=== PATIENT | male | born 1985 | race Caucasian/White ===

== ENCOUNTER 2017-01-02 06:49 | Emergency (ER) | payer OTHER ==
[~2017-01-02] VITALS: Ht 185.4 cm; Wt 93.0 kg
--- NOTE | 2017-01-02 07:30 | NUR ---
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 Hx kidney stones. Pt denies CP, SOB, dizziness, n/v, no other complaints, minor to moderate distress noted.
[2017-01-02 07:43] LABS: BASOPHILS % (AUTO) 0.3 % (0.0-2.0); EOSINOPHILS # (AUTO) 0.1 /CMM (0.0-0.7); EOSINOPHILS % (AUTO) 1.7 % (0.0-6.0); HEMATOCRIT 42 % (39-51); HEMOGLOBIN 14.3 g/dL (13.5-17.5); LYMPHOCYTES # (AUTO) 2.1 /CMM (0.8-4.8); LYMPHOCYTES % (AUTO) 29.8 % (20.0-44.0); MEAN CORPUSCULAR HEMOGLOBIN 30 PG (26.0-33.0); MEAN CORPUSCULAR HGB CONC 34 g/dl (31.0-36.0); MEAN CORPUSCULAR VOLUME 88 fL (80-96); MONOCYTES # (AUTO) 0.5 /CMM (0.1-1.30); NEUTROPHILS # (AUTO) 4.2 /CMM (1.8-8.9); NEUTROPHILS % (AUTO) 61.2 % (43.0-81.0); PLATELET COUNT (AUTO) 164 /CMM (150-450); RDW COEFFICIENT OF VARIATION 12.8 (11.5-15.0); RED BLOOD CELL COUNT(AUTO) 4.79 MIL/uL (4.5-6.0); WHITE BLOOD COUNT (AUTO) 6.9 K/uL (4.3-11.0)
[2017-01-02] MEDS ORDERED: ONDANSETRON HCL/PF 4 MG/2 ML VIAL ONE (07:43)
[2017-01-02] MEDS ORDERED: KETOROLAC TROMETHAMINE 15 MG/ML VIAL ONE ×2 (07:43→09:24)
[2017-01-02] MEDS ORDERED: TAMSULOSIN 0.4 MG CAP.SR.24H ONE (07:43)
[2017-01-02 07:53] LABS: CREATININE 1.3 mg/dL (0.6-1.3); POTASSIUM 3.4 mmol/L (3.5-5.1)
[2017-01-02] MEDS ORDERED: ONDANSETRON HCL/PF 4 MG/2 ML VIAL IV ONE (08:00)
[2017-01-02] MEDS ORDERED: TAMSULOSIN 0.4 MG CAP.SR.24H PO ONE (08:00)
[2017-01-02] MEDS ORDERED: KETOROLAC TROMETHAMINE INJ 30 MG/ML VIAL IV ONE ×2 (08:00→09:30)
--- NOTE | 2017-01-02 08:20 | NUR ---
Pt pain well controlled, now 1-04/17, no nausea. U/S bedside.
--- NOTE | 2017-01-02 08:39 | NUR ---
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
[2017-01-02 09:00] LABS: APPEARANCE,URINE CLOUDY (CLEAR); BILIRUBIN,URINE 1+ (NEGATIVE); BLOOD, URINE 3+ Ery/uL (NEGATIVE); COLOR,URINE DARK YELLO (YELLOW); KETONES,URINE NEGATIVE (NEGATIVE); LEUKOCYTE ESTERASE ,URINE NEGATIVE (NEGATIVE); NITRITE, URINE NEGATIVE (NEGATIVE); PROTEIN,URINE 1+ mg/dl (NEGATIVE); UGLUCOSE NEGATIVE (NEGATIVE); UROBILINOGEN,URINE 0.2 EU/dL (0.2)
--- NOTE | 2017-01-02 09:27 | NUR ---
Pain has returned, 07/15. informed.
[2017-01-02 09:37] LABS: BACTERIA,URINE Rare /HPF (None Seen); RBC,URINE 20-30 /HPF (0-2); SQUAMOUS EPITHELIAL CELL,UR Rare /HPF (None Seen)
--- NOTE | 2017-01-02 10:11 | NUR ---
Pain down to 2/10. No nausea. Removed IV catheter intact, site okay, bandaged. Gave pt RX and d/c instructions, pt verbalized understanding.
[2017-01-02 10:12] VITALS: BP 116/72
== END 2017-01-02 10:14 | disposition home or self-care (01) ==
LOC: ER 06:51
DX: N23 Unspecified renal colic (principal); N13.30 Unspecified hydronephrosis
CPT/HCPCS: 36415; 76770; 80048; 81001; 85025; 96374; 96375; 96376; 99285; A4606; J1885 ×2; J2405; Z7610; 81000-TC

== ENCOUNTER 2017-02-14 02:41 | Inpatient (IN) | payer OTHER ==
[~2017-02-14] VITALS: Ht 185.4 cm; Wt 93.4 kg
--- NOTE | 2017-02-14 03:20 | NUR ---
TO BED 1 A 31 YO MALE PT BIB SELF, PT C/O LEFT SIDED BACK PAIN, FLANK PAIN, PENILE PAIN AND RECTAL PAIN X3 WEEKS. AAOX4, NAD NOTED. VSS. NONDIAPHORETIC. AMBULATORY WITH STEADY GAIT. GOWNED. COMFORT MEASURES RENDERED.
[2017-02-14] MEDS ORDERED: MORPHINE SULFATE INJ 2 MG/ML DISP.SYRIN IV ONE (03:30)
[2017-02-14] MEDS ORDERED: ONDANSETRON HCL/PF - ER 4 MG/2 ML VIAL IV ONE (03:30)
[2017-02-14] MEDS ORDERED: ONDANSETRON HCL/PF 4 MG/2 ML VIAL ONE (03:35)
[2017-02-14] MEDS ORDERED: MORPHINE SULFATE INJ 4 MG/ML DISP.SYRIN ONE (03:36)
--- NOTE | 2017-02-14 03:40 | NUR ---
STARTED A SALINE LOCK ON THE RAC G18, BLOOD DRAWN SENT TO LAB.
--- NOTE | 2017-02-14 03:45 | NUR ---
PATIENT REFUSED MEDS AT THIS TIME AND SAID, "THE PAIN RIGHT NOW IS NOT TOO SEVERE."
[2017-02-14 03:46] LABS: BASOPHILS % (AUTO) 0.6 % (0.0-2.0); EOSINOPHILS # (AUTO) 0.2 /CMM (0.0-0.7); EOSINOPHILS % (AUTO) 3.4 % (0.0-6.0); HEMATOCRIT 40 % (39-51); HEMOGLOBIN 13.6 g/dL (13.5-17.5); LYMPHOCYTES # (AUTO) 2.2 /CMM (0.8-4.8); LYMPHOCYTES % (AUTO) 35.8 % (20.0-44.0); MEAN CORPUSCULAR HEMOGLOBIN 30 PG (26.0-33.0); MEAN CORPUSCULAR HGB CONC 34 g/dl (31.0-36.0); MEAN CORPUSCULAR VOLUME 87 fL (80-96); MONOCYTES # (AUTO) 0.4 /CMM (0.1-1.30); MONOCYTES % (AUTO) 7.2 % (2.0-12.0); NEUTROPHILS # (AUTO) 3.3 /CMM (1.8-8.9); PLATELET COUNT (AUTO) 156 /CMM (150-450); RDW COEFFICIENT OF VARIATION 12.7 (11.5-15.0); RED BLOOD CELL COUNT(AUTO) 4.55 MIL/uL (4.5-6.0); WHITE BLOOD COUNT (AUTO) 6.3 K/uL (4.3-11.0)
[2017-02-14 04:02] LABS: ALBUMIN 4.2 g/dL (3.4-5.0); BILIRUBIN,DIRECT 0.2 mg/dL (0.0-0.2); BILIRUBIN,TOTAL 1.1 mg/dL (0.2-1.0); CREATININE 1.3 mg/dL (0.6-1.3); POTASSIUM 3.6 mmol/L (3.5-5.1); TOTAL PROTEIN, SERUM 7.1 g/dL (6.4-8.2)
[2017-02-14 04:06] LABS: INR 1.03 (0.87-1.13); PROTHROMBIN TIME 10.7 SECS (9.5-12.7)
[2017-02-14] MEDS ORDERED: HYDR-3326 PO (04:10)
[2017-02-14] MEDS ORDERED: IBUP-1955 PO (04:10)
--- NOTE | 2017-02-14 04:14 | NUR ---
REPORT GIVEN TO EDYTA PETERSON FOR MS ADMISSION AND JAIRO.
--- NOTE | 2017-02-14 04:58 | NUR ---
CALLED [facility] FOR PANEL CALL
--- NOTE | 2017-02-14 05:17 | NUR ---
Transferred patient to [place] [id number], no incident noted.
--- NOTE | 2017-02-14 05:20 | NUR ---
MS RN ADMITTING NOTES: ADMITTED A 31 YO MALE PATIENT WHO WAS SEEN IN THE ER DUE TO LOWER BACK PAIN, WORSE OVER LEFT FLANK, DYSURIA AND PENILE PAIN, WHICH HAS BEEN GOING ON FOR MORE THAN 3 WEEKS. PER PATIENT, HE HAS HX OF KIDNEY STONES, AND THAT HE HAS BEEN GOING TO A UROLOGIST FOR THE SYMPTOMS. PATIENT WAS BROUGHT TO MS FLOOR VIA W/C, AOX4, ON ROOM AIR, BREATHING EVEN AND UNLABORED. APPEARS CALM AND IN NO DISTRESS, CURRENTLY SCALES PAIN OVER LOWER BACK AND FLANK TO BE AT 3/10. PIV OVER RAC G 18 INTACT AND PATENT TO FLUSH. ADMITTING CARE DONE. PROVIDED FOR COMFORT AND SAFETY. BED IN LOWEST AND LOCKED POSITION, SIDERAILS UP X 2. WILL CONT TO MONITOR.
--- NOTE | 2017-02-14 05:40 | NUR ---
RN NOTES: PAGED DR VELASQUEZ FOR ADMITTING ORDERS.
[2017-02-14 06:00] VITALS: BP 135/76
[2017-02-14] MEDS ORDERED: CARISOPRODOL 350 MG TABLET PO PRN (06:00)
[2017-02-14] MEDS ORDERED: MAGNESIUM HYDROXIDE 30 ML UDC PO PRN (06:00)
[2017-02-14] MEDS ORDERED: HYDROMORPHONE INJ 2 MG/ML DISP.SYRIN IV PRN (06:00)
[2017-02-14] MEDS ORDERED: IBUPROFEN 600 MG TABLET PO PRN (06:00)
[2017-02-14] MEDS ORDERED: ACETAMINOPHEN 325 MG TABLET PO PRN (06:00)
[2017-02-14] MEDS ORDERED: ONDANSETRON HCL/PF 4 MG/2 ML VIAL IVP PRN (06:00)
[2017-02-14] MEDS ORDERED: HYDROCODONE/APAP 5/325MG 1 EACH TABLET PO PRN (06:00)
[2017-02-14] MEDS ORDERED: PANTOPRAZOLE 40 MG TABLET.DR PO SCH (07:30)
--- NOTE | 2017-02-14 07:30 | NUR ---
MS RN CLOSING NOTES: PATIENT IN BED, AOX4, ON [place] AIR, BREATHING EVEN AND UNLABORED. BED IN LOWEST AND LOCKED POSITION, SIDERAILS UP X 2. ENDORSED TO AM RN FOR JAIRO.
[2017-02-14 08:00] VITALS: BP 117/78
--- NOTE | 2017-02-14 08:11 | NUR ---
MS RN OPENING NOTES: RECEIVED PATIENT RESTING IN BED, AWAKE AND ORIENTED X 4, ABLE TO COMMUNICATE NEEDS. COMPLAINTS OF DYSURIA AND BACK PAIN, REPORTS TO HAVE SUBSIDED THIS MORNING, PAIN RATED 3/10. ON ROOM AIR, BREATHING EVEN AND UNLABORED. APPEARS CALM AND IN NO DISTRESS, IV TO RAC G 18 INTACT AND PATENT TO FLUSH. SAFETY MEASURES RENDERED, SIDERAILS UP X 2. WILL CONT TO MONITOR.
--- NOTE | 2017-02-14 08:27 | NUR ---
MRI APPROVED, TECH ETA IS BETWEEN 1 OR 2PM..
--- NOTE | 2017-02-14 14:15 | NUR ---
MS/RN NOTES PATIENT TAKEN DOWN FOR MRI SPINE VIA WHEELCHAIR
[2017-02-14 16:00] VITALS: BP 135/72
--- NOTE | 2017-02-14 18:51 | NUR ---
MS/R NOTES PATIENT RESTING IN BED COMFORTABLY, NO S/S OF DISTRESS OR DISCOMFORT NOTED. NO SIGNIFICANT CHANGES NOTED, STABLE AT THIS TIME. ALL DUE MEDICATIONS GIVEN, ALL NEEDS MET AND ATTENDED, PATIENT KEPT CLEAN AND DRY, IV TO RIGHT AC INTACT AND PATENT. SAFETY MEASURES RENDERED, LOCKED IN LOWEST POSITION, SIDE RAILS UP X2, CALL LIGHT PLACED WITHIN REACH. WILL ENDORSE CARE TO FAMILY LAW LEGAL ASSISTANT FOR JAIRO
--- NOTE | 2017-02-14 19:30 | NUR ---
RN NOTES RECEIVED PATIENT IN BED AWAKE, AO X 3, ABLE TO MAKE NEEDS KNOWN. NO ACUTE DISTRESS NOTED. PATIENT CONTINUES TO HAVE PAIN ON BACK; REFUSED PAIN MEDICATION. IV SITE PATENT, INTACT; FLUSHED. SAFETY REMINDERS GIVEN. ON LOW BED WITH BILATERAL UPPER SIDE RAILS UP. CALL BUTTON WITHIN EASY REACH. WILL CONTINUE TO MONITOR.
[2017-02-14] MEDS ORDERED: DOCU-25 PO (19:50)
[2017-02-14] MEDS ORDERED: BACL10TA PO (19:50)
[2017-02-14] MEDS ORDERED: HYDR-552 PO (19:50)
[2017-02-14 20:00] VITALS: BP 133/76
--- NOTE | 2017-02-14 20:00 | NUR ---
RN NOTES RECEIVED DISCHARGE ORDERS FROM DR. GARIBAY. PATIENT MADE AWARE.
--- NOTE | 2017-02-14 20:50 | NUR ---
RN NOTES PATIENT GIVEN DISCHARGE INSTRUCTIONS AND DISCHARGE PAPERS. PATIENT VERBALIZED UNDERSTANDING. BELONGINGS PACKED AND GIVEN TO PATIENT. PATIENT IN STABLE CONDITION. VS T 97.5 P 61 R 18 BP 133/76 SPO2 98 % ROOM AIR. PATIENT ESCORTED TO HOSPITAL EXIT. PATIENT'S CAR IN PARKING LOT.
== END 2017-02-14 20:50 | disposition home or self-care (01) | DRG 552 ==
LOC: ER 02:45 → MEDSG2 04:05
PROVIDERS: ADMIT Internal Medicine; ATTEND Internal Medicine
DX: M48.061 Spinal stenosis, lumbar region without neurogenic claudication (principal); M19.90 Unspecified osteoarthritis, unspecified site; N20.0 Calculus of kidney; M47.9 Spondylosis, unspecified
CPT/HCPCS: 36415; 72148-TC; 80048-TC; 80076-TC; 83690-TC; 85025-TC; 85730-TC; 87081-TC; A4606; J2270; J2405; J3480; J3490; Z7610